=== PATIENT | male | born 1995 | race Caucasian/White ===

== ENCOUNTER → 2017-03-18 | Day surgery (SDC) | payer OTHER ==
[~2017-03-18] MED LIST: IV RINGERS,LACTATED 1000ML 1,000 ML IV SCH; LIDOCAINE 1% 1 ML SYRINGE. ID PRN; LIDOCAINE 2% PF Vial for OR 5 ML VIAL. ONE; MIDAZOLAM HCL/PF 2 MG/2 ML VIAL. IV PRN; PROPOFOL 40 ML IV ONE; fentaNYL PF VIAL 100 MCG/2 ML VIAL IV PRN
[2017-03-18 13:40] VITALS: BP 126/64
--- NOTE | 2017-03-19 14:42 | PATHOLOGY ---
PATHOLOGY REPORT * * * * * * * * FINAL DIAGNOSIS: Colonic mucosa, random colon biopsies: - No significant pathologic abnormalities. COMMENT: Sections of the random colon biopsy reveal multiple segments of colonic mucosa containing a few mucosal-associated lymphoid aggregates. There is no evidence of a chronic destructive colitis, lymphocytic colitis, or collagenous colitis. (JPM:mgr; 03/19/2017) REPORT ELECTRONICALLY SIGNED BY: Veronika Lugo M.D. DATE/TIME: 03/19/2017 14:41 * * * * * * * * GROSS PATHOLOGY: Received in formalin labeled "Veronika Claire, random colon biopsies," are multiple segments of [place]ston soft tissue measuring from 0.01 up to 0.3 cm in maximum dimension. The specimen is submitted entirely in cassette A1. (JPM; 03/18/17) INITIAL CPT CODE(S): A; 04711 Professional services performed [place] [facility] [place] [address] Technical services performed by [facility] at [address] [place] [address] [address] [address]. SPECIMEN(S) RECEIVED: A.Random colon biopsies CLINICAL HISTORY: Diarrhea, rectal bleeding PATIENT: VERONIKA CLAIRE /AGE: 1 1995 (Age: 21) PATIENT #: [id number] ALT CASE #: SPECIMEN COLLECTION DATE: 03/18/2017 SPECIMEN RECEIVED DATE: 03/18/2017 [facility] - [address] [place] [address] - PHONE: [phone] * * * END OF REPORT * * *
== END | disposition home or self-care (01) ==
LOC: SURG 11:47
PROVIDERS: ATTEND Internal Medicine Gastroenterology
DX: K64.0 First degree hemorrhoids (principal); F32.9 Major depressive disorder, single episode, unspecified; Z72.89 Other problems related to lifestyle; F17.210 Nicotine dependence, cigarettes, uncomplicated; Z80.3 Family history of malignant neoplasm of breast; Z80.0 Family history of malignant neoplasm of digestive organs; Z87.39 Personal history of other diseases of the musculoskeletal system and connective tissue; F41.9 Anxiety disorder, unspecified; Z72.0 Tobacco use; Z86.14 Personal history of Methicillin resistant Staphylococcus aureus infection
CPT/HCPCS: 45380; 88305; J2704; J2001

== ENCOUNTER → 2017-12-23 | Day surgery (SDC) | payer OTHER ==
[~2017-12-23] MED LIST changes: -IV RINGERS,LACTATED 1000ML 1,000 ML IV SCH; -LIDOCAINE 1% 1 ML SYRINGE. ID PRN; +LIDOCAINE 1% PF 2 ML VIAL. ID; -LIDOCAINE 2% PF Vial for OR 5 ML VIAL. ONE; +MIDAZOLAM HCL/PF 2 MG/2 ML VIAL. IV; -MIDAZOLAM HCL/PF 2 MG/2 ML VIAL. IV PRN; +PROPOFOL 20 ML IV; -PROPOFOL 40 ML IV ONE; +fentaNYL PF VIAL 100 MCG/2 ML VIAL IV; -fentaNYL PF VIAL 100 MCG/2 ML VIAL IV PRN
[2017-12-23] MEDS: IV RINGERS,LACTATED 1000ML 1,000 ML IV (12:26)
== END | disposition home or self-care (01) ==
LOC: SURG 11:37
DX: K21.0 Gastro-esophageal reflux disease with esophagitis (principal); K29.80 Duodenitis without bleeding; Z90.49 Acquired absence of other specified parts of digestive tract; Z98.890 Other specified postprocedural states; Z83.79 Family history of other diseases of the digestive system
CPT/HCPCS: 43239; 88305; J2704

== ENCOUNTER 2021-10-05 09:03 | Emergency (ER) | payer SELFPAY ==
[~2021-10-05] VITALS: Ht 175.3 cm; Wt 87.0 kg
[2021-10-05 09:05] VITALS: BP 127/85
--- NOTE | 2021-10-05 09:07 | PHYS DOC ---
General Adult HPI: HPI: Patient is a 26 year old phenotypic male, who identifies as female, who presents with reports of sharp midsternal chest pain, which began this morning. The pain radiates across the chest. He describes sharp, stabbing pain, lasting seconds at a time. He reports mild pleuritic pain. He reports mild dyspnea. He denies dizziness, diaphoresis, abdominal pain, nausea or vomiting. He reports last night he felt symptoms of a burning sensation in his chest, he describes waterbrash symptoms. This resolved quickly. He does admit to having some anxiety issues, he feels like perhaps anxiety may be contributing to his current symptoms. He denies recent travel, surgery, hospitalization. He denies lower extremity pain or swelling. He denies cough or hemoptysis. He reports that he already feels better now that he is here. He denies having any severe, active pain at present. Review of Systems: Review of Systems: Constitutional: Denies fever or chills. [] HENT: Denies nasal congestion or sore throat. [] Respiratory: Denies cough or hemoptysis. Mild shortness of breath Cardiovascular: Denies chest pain. Denies peripheral edema, cyanosis or syncope GI: Denies abdominal pain, nausea, vomiting Musculoskeletal: Denies back pain or joint pain. [] Integument: Denies rash. [] Neurologic: Denies headache, focal weakness or sensory changes. Denies dizziness or syncope. Psychiatric: Anxiety. Denies SI or HI symptoms Heart Score: C/O Chest Pain: Yes HEART Score for Chest Pain: HEART Score for Chest Pain Response (Comments) Value History Slighlty/Non-Suspicious 0 ECG Normal 0 Age < 45 0 Risk Factors No Risk Factors 0 Troponin < Normal Limit 0 Total 0 Risk Factors: Risk Factors: DM, Current or recent (<one month) smoker, HTN, HLP, family hist ory of CAD, obesity. Risk Scores: Score 0 - 3: 2.5% MACE over next 6 weeks - Discharge Home Score 4 - 6: 20.3% MACE over next 6 weeks - Admit for Clinical Observation Score 7 - 10: 72.7% MACE over next 6 weeks - Early Invasive Strategies Allergies: Allergies: Allergies Coded Allergies Type Severity Reaction Last Updated Verified No Known Drug Allergies 12/23/17 No Physical Exam: PE: Constitutional: Well developed, well nourished, no acute distress, non-toxic appearance. [] HENT: Normocephalic, atraumatic, oropharynx patent and clear, mucous membranes are moist. No evidence of facial trauma or injury Eyes: Clear are clear and anicteric Neck: Normal range of motion, no tenderness, supple, no stridor. Trachea midline, no JVD Cardiovascular:Heart rate regular rhythm, 2 radial and +2 posterior tibial pulses bilaterally Lungs & Thorax: Bilateral breath sounds clear to auscultation, equal chest rise, no evidence of chest or thorax trauma, no rales, rhonchi or wheezes. No evidence of respiratory distress Abdomen: Abdomen is soft, nondistended, nontender to palpation. No palpable masses organomegaly. Normal bowel sounds. No CVA tenderness. Skin: Warm, dry, no erythema, no rash. No jaundice. Back: No tenderness, no CVA tenderness. [] Extremities: No tenderness, no cyanosis, no clubbing, ROM intact, no edema. No calf tenderness. Neurologic: Alert and oriented X 3, normal motor function, normal sensory function, no focal deficits noted. [] Psychologic: He is mildly anxious but he is very pleasant and cooperative. Den ies SI HI symptoms EKG: EKG: EKG is interpreted at 0913 Rhythm is sinus Rate is 64 bpm Axisis normal No STEMI No acute ischemia Radiology/Procedures: Radiology/Procedures: IMAGING REPORT Signed PATIENT: VERONIKA CLAIRE ACCOUNT: [id number] : 1995 LOCATION: ER AGE: 26 SEX: M EXAM STATUS: REG ER ORD. PHYSICIAN: GITA SIEGEL DO REASON: chest pain PROCEDURE: PORTABLE CHEST 1V EXAM: Chest, single view. HISTORY: Chest pain. COMPARISON: None. FINDINGS: A frontal view of the chest is obtained. There is no infiltrate, pleural effusion or pneumothorax. The heart is normal in size. IMPRESSION: No acute pulmonary finding. Electronically signed by: Janna Henley MD (10/05/2021 9:42 AM) [facility] DICTATED and SIGNED BY: JANNA HENLEY MD DATE: 10/05/21 [id number] 0 Course & Med Decision Making: Course & Med Decision Making Pertinent Labs and Imaging studies reviewed. (See chart for details) Patient has been resting comfortably here. He denies any severe pain. Serial cardiac enzymes are negative. Emergency department work-up is unremarkable for any acute life-threatening process. I have discussed the findings, differential diagnosis and plan of care with her. I recommend follow-up with her primary care physician for further evaluation and treatment. She does admit that he feels that anxiety is contributing to symptoms, I recommend she contact her PCP to discuss this further. Return precautions are given. She verbalized understanding, she is comfortable with the plan of care. Dragon Disclaimer: Jovana Disclaimer: This electronic medical record was generated, in whole or in part, using a voice recognition dictation system. Departure Departure Impression: Primary Impression: Atypical chest pain Disposition: 01 HOME / SELF CARE / HOMELESS Condition: STABLE Referrals: IVIS SANTOYO DO, M[facility] (PCP) Patient Instructions: Chest Pain (Nonspecific) Additional Instructions: Return to the ER for more severe pain, coughing up blood, temperature 100.4 or higher, severe shortness of breath, wheezing, uncontrolled vomiting, severe abdominal pain or any other concerns. Please contact your primary care physic arnaldo for follow-up. GITA SIEGEL DO Oct 05, 2021 09:07
[2021-10-05 09:36] LABS: BASO # 0.1 x10^3/uL (0.0-0.2); BASO % 1 % (0-3); EOS # 0.1 x10^3/uL (0.0-0.7); EOS % 1 % (0-3); HEMATOCRIT 42.5 % (39.0-53.0); HEMOGLOBIN 13.7 g/dL (13.0-17.5); LYMPH # 2.1 x10^3/uL (1.0-4.8); LYMPH % 29 % (24-48); MEAN CORPUSCULAR HEMOGLOBIN 29 pg (25-35); MEAN CORPUSCULAR HGB CONC 32 g/dL (31-37); MEAN CORPUSCULAR VOLUME 89 fL (79-100); MONO # 0.7 x10^3/uL (0.0-1.1); MONO % 9 % (0-9); NEUT # 4.3 x10^3/uL (1.8-7.7); NEUT % 60 % (31-73); PLATELET COUNT 289 x10^3/uL (140-400); RED BLOOD COUNT 4.76 x10^6/uL (4.30-5.70); RED CELL DISTRIBUTION WIDTH 13.7 % (11.5-14.5); WHITE BLOOD COUNT 7.3 x10^3/uL (4.0-11.0)
--- NOTE | 2021-10-05 09:45 | RAD ---
EXAM: Chest, single view. HISTORY: Chest pain. COMPARISON: None. FINDINGS: A frontal view of the chest is obtained. There is no infiltrate, pleural effusion or pneumo thorax. The heart is normal in size. IMPRESSION: No acute pulmonary finding. Electronically signed by: Janna Garcia MD (10/05/2021 9:42 AM) [facility]
[2021-10-05 09:47] LABS: CREATININE 0.9 mg/dL (0.7-1.3); GFR 100.5; POTASSIUM 3.8 mmol/L (3.5-5.1)
[2021-10-05 09:55] LABS: ALBUMIN 4.1 g/dL (3.4-5.0); ALBUMIN/GLOBULIN RATIO 1.2 (1.0-1.7); MAGNESIUM 1.8 mg/dL (1.8-2.4); TOTAL BILIRUBIN 0.8 mg/dL (0.2-1.0); TOTAL PROTEIN 7.5 g/dL (6.4-8.2)
[2021-10-05 11:38] LABS: BILIRUBIN,URINE NEGATIVE (NEG); CLARITY,URINE CLEAR; COLOR,URINE YELLOW; NITRITE,URINE NEGATIVE (NEG); PH,URINE 6.5 (<5.0-8.0); PROTEIN,URINE NEGATIVE (NEG-TRACE); UROBILINOGEN,URINE 0.2 mg/dL (0.2 mg/dL)
[2021-10-05 11:39] LABS: BACTERIA,URINE 0 /HPF (0-FEW); RBC,URINE 0 /HPF (0-2)
--- NOTE | 2021-10-05 17:13 | EKG ---
[facility] [address] [place] [address] Test Date: 2021-10-05 Test Time: 09:12:25 Pat Name: VERONIKA CLAIRE Department: Room: Gender: M [employer] Consultant: : 1995 Requested By: GITA SIEGEL Order Number: [id number] Reading MD: Measurements Intervals [place] Rate: 64 P: 34 NH: 148 QRS: 52 QRSD: 90 T: 53 QT: 378 QTc: 390 Interpretive Statements SINUS RHYTHM OTHERWISE NORMAL ECG RI6.02 No previous ECG available for comparison
== END 2021-10-05 12:56 | disposition home or self-care (01) ==
LOC: ER 09:03
DX: R07.2 Precordial pain (principal); R06.02 Shortness of breath
CPT/HCPCS: 36415; 71045; 80053; 81001; 83690; 83735; 84484; 85025; 85379; 93005; 99285-25